=== PATIENT | female | born 1995 | race African-American/Black ===

== ENCOUNTER 2018-11-07 00:55 | Emergency (ER) | payer SELFPAY ==
[~2018-11-07] VITALS: Ht 167.6 cm; Wt 54.0 kg
[2018-11-07] MEDS ORDERED: BACITRACIN ZINC OINT UDPKT TOP ONE (02:15)
[2018-11-07] MEDS ORDERED: ACETAMINOPHEN 325MG TABLET PO ONE (02:15)
[2018-11-07] MEDS ORDERED: TETANUS, DIPHTHERIA, PERTUSSIS VAC/PF 0.5ML (>7YR OLD) IM ONE (02:15)
[2018-11-07 03:20] VITALS: BP 102/64
== END 2018-11-07 03:21 | disposition home or self-care (01) ==
LOC: ER 00:55
DX: S60.412A Abrasion of right middle finger, initial encounter (principal); S60.414A Abrasion of right ring finger, initial encounter; Y08.89XA Assault by other specified means, initial encounter; Y93.89 Activity, other specified; Y92.89 Other specified places as the place of occurrence of the external cause; Y99.8 Other external cause status
CPT/HCPCS: 73140; 81025; 90471; 90715; 99283

== ENCOUNTER 2019-01-30 01:45 | Emergency (ER) | payer SELFPAY ==
[~2019-01-30] VITALS: Ht 167.6 cm; Wt 59.0 kg
[2019-01-30 02:30] VITALS: BP 112/70
== END 2019-01-30 06:48 | disposition left against medical advice (07) ==
LOC: ER 01:45
DX: N93.9 Abnormal uterine and vaginal bleeding, unspecified (principal); Z53.21 Procedure and treatment not carried out due to patient leaving prior to being seen by health care provider